=== PATIENT | male | born 1995 | race Caucasian/White ===

== ENCOUNTER 2019-06-10 17:36 | Emergency (ER) | payer OTHER ==
[2019-06-10 18:40] VITALS: BP 128/88
--- NOTE | 2019-06-10 19:47 | UC ---
UC General HPI - HPI Summary HPI Summary: 23-year-old male comes in with a chief complaint of tailbone area pain. Started about 4 days ago. Had no specific trauma. Since that time he is takin to 3 hour car rides. He also sits at his desk work. Sitting on the area makes the pain worse. No fevers or chills. No history of pilonidal cysts. Patient' s able to have normal bowel movements. - History of Current Complaint Chief Complaint: UCBackPain Stated Complaint: BACK PAIN Time Seen by Provider: 06/10/19 19:29 Pain Intensity: 7 - Allergy/Home Medications Allergies/Adverse Reactions: Allergies Allergy/AdvReac Type Severity Reaction Status Date / Time niacin Allergy Flushing Verified 06/10/19 18:40 Home Medications: Home Medications Aspirin 2 tab PO ONCE PRN 06/10/19 [History Confirmed 06/10/19] Ibuprofen [Advil] 400 mg PO ONCE PRN 06/10/19 [History Confirmed 06/10/19] PMH/Surg Hx/FS Hx/Imm Hx Previously Healthy: Yes - Surgical History Surgical History: Yes Surgery Procedure, Year, and Place: SEPTOPLASTY turbinoreduction [facility] [place] 2015. T& A 2016 - Social History Alcohol Use: Weekly Substance Use Type: None Smoking Status (MU): Never Smoked Tobacco Review of Systems All Other Systems Reviewed And Are Negative: Yes Constitutional: Positive: Negative Skin: Positive: Other - SEE HPI ENT: Positive: Negative Respiratory: Positive: Negative Cardiovascular: Positive: Negative Gastrointestinal: Positive: Negative Motor: Positive: Negative Neurovascular: Positive: Negative Musculoskeletal: Positive: Other: - SEE HPI Neurological: Positive: Negative Psychological: Positive: Negative Is Patient Immunocompromised?: No Physical Exam Triage Information Reviewed: Yes Appearance: Well-Appearing, Well-Nourished, Pain Distress - MILD WITH SITTING AND PALPATION OF GLUTTEAL FOLD Vital Signs: Initial Vital Signs Temp 97.5 F 06/10/19 18:35 Pulse 76 06/10/19 18:35 Resp 18 06/10/19 18:35 BP 128/88 06/10/19 18:35 Pulse Ox 100 06/10/19 18:35 Vital Signs Reviewed: Yes Eye Exam: Normal Eyes: Positive: Conjunctiva Clear Neck: Positive: Supple Respiratory: Positive: No respiratory distress Musculoskeletal: Positive: Strength Intact, ROM Intact Neurological: Positive: Alert, Muscle Tone Normal Psychological: Positive: Age Appropriate Behavior Skin: Positive: Other - In the upper gluteal fold over the area of the coccyx there is tender area of erythema approximately 2 cm in diameter. There is 1 fluid filled 3 mm vesicle in the area. There is no fluctuant area for incision and drainage. Course/Dx - Course Course Of Treatment: The area of pain and tenderness that shows some erythema. There is one vesicle there but not a grouping of vesicles to make me think that it's HSV. Given the location is most likely a cellulitis associated with a pilonidal cyst. At this time is no fluctuant area for incision and drainage. Will treat with doxycycline and milligrams by mouth twice a day patient's can use a donut pillow and that follow-up his primary care doctor. I let him know that if he got worse and there appeared to be an abscess he should get reevaluated either by his primary care doctor or here in the emergency department. - Diagnoses Provider Diagnosis: Cellulitis, Pain, coccyx Discharge ED - Sign-Out/Discharge Documenting (check all that apply): Patient Departure All imaging exams completed and their final reports reviewed: No Studies - Discharge Plan Condition: Stable Disposition: HOME Prescriptions: DOXYcycline CAP(*) [DOXYcycline 100MG CAP(*)] 100 mg PO BID #20 cap Patient Education Materials: Pilonidal Cyst (ED) Referrals: Gurinder Mendenhall MD [Primary Care Provider] - Additional Instructions: FOLLOW UP WITH YOUR DOCTOR IF NOT COMPLETELY IMPROVED. Use a donut pillow to decrease pressure on the area. GET REEVALUATED SOONER IF NOT IMPROVED OR WORSE; PAIN, FEVER, YOU FEEL ILL OR ANY QUESTIONS OR CONCERNS. - Billing Disposition and Condition Condition: STABLE Disposition: Home
== END 2019-06-10 19:55 | disposition home or self-care (01) ==
LOC: UCEAST 17:36
DX: L03.312 Cellulitis of back [any part except buttock and flank] (principal); M53.3 Sacrococcygeal disorders, not elsewhere classified; Z88.8 Allergy status to other drugs, medicaments and biological substances; Z79.82 Long term (current) use of aspirin
CPT/HCPCS: 99202; G0463